=== PATIENT | female | born 1935 | race Caucasian/White ===

== ENCOUNTER 2018-11-22 19:39 | Emergency (ER) | payer MEDICAID ==
[~2018-11-22] VITALS: Ht 149.9 cm; Wt 57.0 kg
[~2018-11-22 19:39] MED LIST: FURO-151 PO; Famotidine PO; LACT10SO7 PO; PRED5TAB48 PO; SULF15DR26 BOTHEYE
[2018-11-22] MEDS ORDERED: IBUPROFEN 600MG TABLET PO ONE (21:00)
[2018-11-22 22:13] VITALS: BP 113/67
== END 2018-11-22 22:13 | disposition home or self-care (01) ==
LOC: ER 19:39
DX: M79.644 Pain in right finger(s) (principal)
CPT/HCPCS: 29125; 73130; 99283

== ENCOUNTER 2020-03-14 18:37 | Inpatient (IN) | payer MEDICAID, OTHER ==
[~2020-03-14] VITALS: Ht 162.6 cm; Wt 73.0 kg
[2020-03-14] MEDS ORDERED: ACETAMINOPHEN 650MG SUPP PR ONE (19:00)
[2020-03-14 19:29] LABS: HEMATOCRIT. 36.8 % (36.0-48.0); HEMOGLOBIN. 12.7 g/dL (12.0-16.0); MEAN CORPUSCULAR HEMOGLOBIN 36.9 pg (28.0-32.0); MEAN CORPUSCULAR VOLUME 106.9 fL (81.0-99.0); MEAN PLATELET VOLUME 6.8 fl (7.4-10.4); PLATELET 149 x1000/uL (130-400); RED BLOOD CELL COUNT 3.44 mill/uL (4.2-5.4); RED CELL DISTRIBUTION WIDTH 14.3 % (11.6-14.6)
[2020-03-14 19:32] LABS: CHLORIDE 102 mEq/L (98-107)
[2020-03-14 19:34] LABS: INR 1.4; PROTHROMBIN TIME 15.1 sec (9.6-11.0)
[2020-03-14 19:49] LABS: PLATELET ESTIMATE NORMAL
[2020-03-14] MEDS ORDERED: CEFTRIAXONE 1 G PREMIX 50 ML IV ONE (20:00)
[2020-03-14] MEDS ORDERED: AZITHROMYCIN 500 MG in DEXT 5% WATER 250 ML IV SCH ×2 (20:00→21:00)
[2020-03-14 20:02] LABS: BG BASE EXCESS -2.2 mmol/L (-2.0-2.0); BG CARBOXYHEMOGLOBIN 0.4 % (0.5-1.5); BG DEOXYHEMOGLOBIN 5.4 % (0.0-5.0); BG FRACTION INSPIRED OXYGEN 36; BG METHEMOGLOBIN 0.1 % (0.0-1.5); BG OXYGEN SATURATION 94.6 % (92.0-98.5); BG OXYHEMOGLOBIN 94.1 % (94.0-97.0); BG PCO2 41.3 mmHg (35.0-45.0); BG PH 7.364 (7.350-7.450); BG SAMPLE SITE RIGHT BRACHIAL; BG TOTAL HEMOGLOBIN 11.4 g/dL (12.0-18.0); BG VENT MODE NASAL CANNULA
[2020-03-14] MEDS ORDERED: ACETAMINOPHEN 325MG TABLET PO PRN ×2 (21:00)
[2020-03-14] MEDS ORDERED: TRAMADOL 50MG TABLET PO PRN (21:00)
[2020-03-14] MEDS ORDERED: CLONIDINE 0.1MG TABLET PO PRN (21:00)
[2020-03-14] MEDS ORDERED: MAGNESIUM/ALUMINUM HYDROXIDE/SIMETHICONE 30ML UDC PO PRN (21:00)
[2020-03-14] MEDS ORDERED: DOCUSATE SODIUM 100MG CAPSULE PO PRN (21:00)
[2020-03-14] MEDS ORDERED: ZOLPIDEM TARTRATE 5MG TABLET PO PRN (21:00)
[2020-03-14] MEDS ORDERED: SPIRONOLACTONE 25MG TABLET PO SCH (21:00)
[2020-03-14] MEDS ORDERED: IPRATROPIUM/ALBUTEROL 0.5-3(2.5)MG/3ML NEB ORI PRN (21:00)
[2020-03-14] MEDS ORDERED: NITROGLYCERIN 0.4MG TABLET SL SL PRN (21:00)
[2020-03-14] MEDS ORDERED: POTASSIUM CHLORIDE 20MEQ TABLET SR PO SCH (21:00)
[2020-03-14] MEDS ORDERED: ONDANSETRON HCL 4MG/2ML INJ IV PRN (21:00)
[2020-03-14 21:32] LABS: FOLIC ACID (FOLATE) SERUM 13.9 ng/mL (>5.38)
[2020-03-14 22:03] LABS: T4 FREE 1.03 ng/dL (0.76-1.46)
[2020-03-14] MEDS ORDERED: FAMOTIDINE 20MG TABLET PO SCH (23:15)
[2020-03-14] MEDS ORDERED: ASCORBIC ACID 500 MG TABLET PO SCH (23:15)
[2020-03-14] MEDS ORDERED: SPIRONOLACTONE 25MG TABLET PO NR (23:15)
[2020-03-14 23:45] LABS: CLARITY URINE CLEAR (CLEAR); COLOR URINE DARK YELLOW (YELLOW); KETONES URINE TRACE (NEGATIVE); LEUKOCYTE ESTERASE URINE 1+ (NEGATIVE); NITRITE URINE NEGATIVE (NEGATIVE); OCCULT BLOOD URINE NEGATIVE (NEGATIVE); PH URINE 5.5 (4.5-8.0); PROTEIN URINE NEGATIVE (NEGATIVE); SPECIFIC GRAVITY URINE 1.018 (1.005-1.030)
[2020-03-15 00:14] LABS: CREATINE KINASE 574 IU/L (26-192)
[2020-03-15] MEDS ORDERED: ENOXAPARIN 60MG/0.6ML SYR SUBCUT SCH ×2 (04:30→18:00)
[2020-03-15 05:09] LABS: HEMOGLOBIN. 12.5 g/dL (12.0-16.0); MEAN CORPUSCULAR HEMOGLOBIN 37.5 pg (28.0-32.0); MEAN CORPUSCULAR VOLUME 108.4 fL (81.0-99.0); MEAN PLATELET VOLUME 6.9 fl (7.4-10.4); PLATELET 129 x1000/uL (130-400); RED BLOOD CELL COUNT 3.32 mill/uL (4.2-5.4); RED CELL DISTRIBUTION WIDTH 14.1 % (11.6-14.6)
[2020-03-15 05:18] LABS: CHLORIDE 101 mEq/L (98-107)
[2020-03-15 05:28] LABS: PHOSPHORUS 3.8 mg/dL (2.5-4.9)
[2020-03-15 05:30] LABS: CREATINE KINASE 483 IU/L (26-192)
[2020-03-15] MEDS ORDERED: FUROSEMIDE 20MG/2ML VIAL IVP SCH (05:45)
[2020-03-15 06:27] LABS: PLATELET ESTIMATE NORMAL
[2020-03-15] MEDS: SPIRONOLACTONE 25MG TABLET PO SCH (09:27)
[2020-03-15] MEDS: GUAIFENESIN/DM 600MG/30MG ER TAB 12HR PO SCH ×3 (09:27→22:14)
[2020-03-15] MEDS: ASCORBIC ACID 500 MG TABLET PO SCH ×2 (09:28→22:14)
[2020-03-15] MEDS: ASPIRIN 81MG EC TABLET PO SCH (09:28)
[2020-03-15] MEDS: ZINC SULFATE 220 MG ( 50 ) CAPSULE PO SCH (09:28)
[2020-03-15 11:29] VITALS: BP 127/49
[2020-03-15 12:00] VITALS: BP 127/49
[2020-03-15] MEDS: FAMOTIDINE 20MG TABLET PO SCH (12:22)
[2020-03-15 16:00] VITALS: BP 148/66
[2020-03-15] MEDS: FUROSEMIDE 20MG/2ML VIAL IVP SCH (17:26)
[2020-03-15 20:00] VITALS: BP 122/58
[2020-03-15] MEDS ORDERED: FAMOTIDINE 20MG TABLET PO SCH (21:00)
[2020-03-15] MEDS ORDERED: CEFTRIAXONE 1 G PREMIX 50 ML IV SCH ×2 (21:00)
[2020-03-15] MEDS: AZITHROMYCIN 500 MG in DEXT 5% WATER 250 ML IV SCH (22:13)
[2020-03-16] VITALS: BP 119/61
[2020-03-16 04:00] VITALS: BP 114/57
[2020-03-16] MEDS: FUROSEMIDE 20MG/2ML VIAL IVP SCH ×2 (06:35→17:39)
[2020-03-16 08:00] VITALS: BP 130/64
[2020-03-16] MEDS: FAMOTIDINE 20MG TABLET PO SCH (09:18)
[2020-03-16] MEDS: ASCORBIC ACID 500 MG TABLET PO SCH ×2 (09:18→20:43)
[2020-03-16] MEDS: GUAIFENESIN/DM 600MG/30MG ER TAB 12HR PO SCH ×2 (09:19→20:45)
[2020-03-16] MEDS: SPIRONOLACTONE 25MG TABLET PO SCH (09:19)
[2020-03-16] MEDS: ENOXAPARIN 40MG/0.4ML SYR SUBCUT SCH (09:19)
[2020-03-16] MEDS: ZINC SULFATE 220 MG ( 50 ) CAPSULE PO SCH (09:19)
[2020-03-16] MEDS: ASPIRIN 81MG EC TABLET PO SCH (09:19)
[2020-03-16 12:00] VITALS: BP 129/70
[2020-03-16 16:00] VITALS: BP 134/61
[2020-03-16 20:00] VITALS: BP 129/61
[2020-03-16] MEDS: AZITHROMYCIN 500 MG in DEXT 5% WATER 250 ML IV SCH (20:43)
[2020-03-16] MEDS: CEFTRIAXONE 1,000 MG in DEXTROSE 5% WATER 50 ML IV SCH (23:43)
[2020-03-17] VITALS: BP 128/70
[2020-03-17 04:00] VITALS: BP 125/71
[2020-03-17 08:00] VITALS: BP 159/75
[2020-03-17] MEDS: ENOXAPARIN 40MG/0.4ML SYR SUBCUT SCH ×2 (09:00→09:19)
[2020-03-17] MEDS: FAMOTIDINE 20MG TABLET PO SCH (09:16)
[2020-03-17] MEDS: ASPIRIN 81MG EC TABLET PO SCH (09:16)
[2020-03-17] MEDS: SPIRONOLACTONE 25MG TABLET PO SCH (09:17)
[2020-03-17] MEDS: ZINC SULFATE 220 MG ( 50 ) CAPSULE PO SCH (09:17)
[2020-03-17] MEDS: ASCORBIC ACID 500 MG TABLET PO SCH ×2 (09:17→21:00)
[2020-03-17] MEDS: GUAIFENESIN/DM 600MG/30MG ER TAB 12HR PO SCH ×2 (09:21→21:00)
[2020-03-17 12:00] VITALS: BP 160/78
[2020-03-17 16:00] VITALS: BP 120/68
[2020-03-17] MEDS: FUROSEMIDE 20MG/2ML VIAL IVP SCH ×2 (18:40→18:41)
[2020-03-17 20:00] VITALS: BP 159/74
[2020-03-17] MEDS: AZITHROMYCIN 500 MG in DEXT 5% WATER 250 ML IV SCH (22:29)
[2020-03-17] MEDS: CEFTRIAXONE 1,000 MG in DEXTROSE 5% WATER 50 ML IV SCH (23:27)
[2020-03-18] VITALS: BP 135/77
[2020-03-18 04:00] VITALS: BP 136/54
[2020-03-18] MEDS: FUROSEMIDE 20MG/2ML VIAL IVP SCH ×2 (05:47→17:57)
[2020-03-18 08:00] VITALS: BP 150/73
[2020-03-18] MEDS: SPIRONOLACTONE 25MG TABLET PO SCH (08:25)
[2020-03-18] MEDS: ENOXAPARIN 40MG/0.4ML SYR SUBCUT SCH (08:25)
[2020-03-18] MEDS: ASCORBIC ACID 500 MG TABLET PO SCH ×2 (08:25→21:48)
[2020-03-18] MEDS: GUAIFENESIN/DM 600MG/30MG ER TAB 12HR PO SCH ×2 (08:25→21:48)
[2020-03-18] MEDS: ASPIRIN 81MG EC TABLET PO SCH (08:25)
[2020-03-18] MEDS: ZINC SULFATE 220 MG ( 50 ) CAPSULE PO SCH (08:25)
[2020-03-18] MEDS: FAMOTIDINE 20MG TABLET PO SCH (08:25)
[2020-03-18] MEDS ORDERED: LORAZEPAM 2MG/ML CPJ IV PRN (10:15)
[2020-03-18 12:00] VITALS: BP 137/96
[2020-03-18] MEDS ORDERED: HALOPERIDOL 0.5MG TABLET PO PRN (12:00)
[2020-03-18 16:00] VITALS: BP 140/71
[2020-03-18 20:00] VITALS: BP 139/73
[2020-03-18] MEDS: AZITHROMYCIN 500 MG in DEXT 5% WATER 250 ML IV SCH (20:21)
[2020-03-18] MEDS: CEFTRIAXONE 1,000 MG in DEXTROSE 5% WATER 50 ML IV SCH (21:48)
[2020-03-18] MEDS: RISPERIDONE 0.25MG TABLET PO SCH (21:48)
[2020-03-19] VITALS: BP 119/63
[2020-03-19 04:00] VITALS: BP 145/73
[2020-03-19] MEDS: FUROSEMIDE 20MG/2ML VIAL IVP SCH ×2 (05:30→17:05)
[2020-03-19] MEDS: ASPIRIN 81MG EC TABLET PO SCH ×2 (09:00→10:14)
[2020-03-19] MEDS: ZINC SULFATE 220 MG ( 50 ) CAPSULE PO SCH ×2 (09:00→10:14)
[2020-03-19] MEDS: ASCORBIC ACID 500 MG TABLET PO SCH ×3 (09:00→21:22)
[2020-03-19] MEDS: GUAIFENESIN/DM 600MG/30MG ER TAB 12HR PO SCH ×3 (09:00→21:22)
[2020-03-19] MEDS: SPIRONOLACTONE 25MG TABLET PO SCH ×2 (09:00→10:14)
[2020-03-19] MEDS: FAMOTIDINE 20MG TABLET PO SCH ×2 (09:00→10:15)
[2020-03-19] MEDS: ENOXAPARIN 40MG/0.4ML SYR SUBCUT SCH (10:15)
[2020-03-19 10:16] VITALS: BP 132/70
[2020-03-19] MEDS: VANCOMYCIN 1 G PREMIX 200 ML IV SCH ×2 (13:00→13:22)
[2020-03-19 13:07] VITALS: BP 140/63
[2020-03-19 17:59] VITALS: BP 139/68
[2020-03-19 20:00] VITALS: BP 136/65
[2020-03-19] MEDS: RISPERIDONE 0.25MG TABLET PO SCH (21:22)
[2020-03-19 22:37] LABS: COVID-19 PCR RNA NOT DETECTED
[2020-03-19 22:38] LABS: COVID-19 PCR RNA NOT DETECTED
[2020-03-19 23:44] LABS: HEMATOCRIT. 39.8 % (36.0-48.0); HEMOGLOBIN. 13.9 g/dL (12.0-16.0); MEAN CORPUSCULAR HEMOGLOBIN 37.5 pg (28.0-32.0); MEAN CORPUSCULAR VOLUME 107.5 fL (81.0-99.0); MEAN PLATELET VOLUME 7.1 fl (7.4-10.4); PLATELET 121 x1000/uL (130-400); RED CELL DISTRIBUTION WIDTH 14.4 % (11.6-14.6)
[2020-03-19 23:51] LABS: CHLORIDE 93 mEq/L (98-107)
[2020-03-20] VITALS: BP 120/58
[2020-03-20 02:26] LABS: PLATELET ESTIMATE SLIGHTLY DECREASED
[2020-03-20 04:00] VITALS: BP 137/61
[2020-03-20] MEDS: FUROSEMIDE 20MG/2ML VIAL IVP SCH ×2 (05:53→17:54)
[2020-03-20 08:00] VITALS: BP 166/69
[2020-03-20] MEDS: FAMOTIDINE 20MG TABLET PO SCH (09:00)
[2020-03-20] MEDS: GUAIFENESIN/DM 600MG/30MG ER TAB 12HR PO SCH ×2 (09:00→21:00)
[2020-03-20] MEDS: ZINC SULFATE 220 MG ( 50 ) CAPSULE PO SCH (09:00)
[2020-03-20] MEDS: ASPIRIN 81MG EC TABLET PO SCH (09:00)
[2020-03-20] MEDS: SPIRONOLACTONE 25MG TABLET PO SCH (09:00)
[2020-03-20] MEDS: ASCORBIC ACID 500 MG TABLET PO SCH ×2 (09:00→21:00)
[2020-03-20 12:00] VITALS: BP 166/69
[2020-03-20] MEDS: ENOXAPARIN 40MG/0.4ML SYR SUBCUT SCH (12:30)
[2020-03-20] MEDS: VANCOMYCIN 1 G PREMIX 200 ML IV SCH (14:52)
[2020-03-20 16:00] VITALS: BP 139/61
[2020-03-20 20:00] VITALS: BP 133/57
[2020-03-20] MEDS: RISPERIDONE 0.25MG TABLET PO SCH (21:00)
[2020-03-21] VITALS: BP 152/69
[2020-03-21 04:00] VITALS: BP 138/72
[2020-03-21] MEDS: FUROSEMIDE 20MG/2ML VIAL IVP SCH ×2 (07:13→17:34)
[2020-03-21 08:00] VITALS: BP 130/64
[2020-03-21] MEDS: ASCORBIC ACID 500 MG TABLET PO SCH ×3 (09:00→20:56)
[2020-03-21] MEDS: ZINC SULFATE 220 MG ( 50 ) CAPSULE PO SCH ×2 (09:00→09:25)
[2020-03-21] MEDS: ASPIRIN 81MG EC TABLET PO SCH ×2 (09:00→09:26)
[2020-03-21] MEDS: SPIRONOLACTONE 25MG TABLET PO SCH ×2 (09:00→09:26)
[2020-03-21] MEDS: FAMOTIDINE 20MG TABLET PO SCH ×2 (09:00→09:25)
[2020-03-21] MEDS: GUAIFENESIN/DM 600MG/30MG ER TAB 12HR PO SCH ×2 (09:25→20:56)
[2020-03-21] MEDS: ENOXAPARIN 40MG/0.4ML SYR SUBCUT SCH (09:25)
[2020-03-21 12:00] VITALS: BP 137/64
[2020-03-21 16:00] VITALS: BP 131/60
[2020-03-21] MEDS: VANCOMYCIN 1 G PREMIX 200 ML IV SCH (16:37)
[2020-03-21 20:00] VITALS: BP 115/54
[2020-03-21] MEDS: RISPERIDONE 0.25MG TABLET PO SCH (20:56)
[2020-03-22] VITALS: BP 116/63
[2020-03-22 04:00] VITALS: BP 124/63
[2020-03-22] MEDS: FUROSEMIDE 20MG/2ML VIAL IVP SCH ×2 (05:39→17:55)
[2020-03-22 07:01] LABS: CHLORIDE 98 mEq/L (98-107)
[2020-03-22 08:00] VITALS: BP 120/60
[2020-03-22] MEDS: SPIRONOLACTONE 25MG TABLET PO SCH (09:00)
[2020-03-22] MEDS: ENOXAPARIN 40MG/0.4ML SYR SUBCUT SCH (09:00)
[2020-03-22] MEDS: ASPIRIN 81MG EC TABLET PO SCH (09:28)
[2020-03-22] MEDS: ASCORBIC ACID 500 MG TABLET PO SCH ×2 (09:28→21:25)
[2020-03-22] MEDS: ZINC SULFATE 220 MG ( 50 ) CAPSULE PO SCH (09:28)
[2020-03-22] MEDS: FAMOTIDINE 20MG TABLET PO SCH (09:28)
[2020-03-22] MEDS: GUAIFENESIN/DM 600MG/30MG ER TAB 12HR PO SCH ×2 (09:31→21:25)
[2020-03-22 12:00] VITALS: BP 138/68
[2020-03-22] MEDS ORDERED: VANCOMYCIN 1,000 MG in DEXT 5% WATER 250 ML IV SCH (13:00)
[2020-03-22 16:00] VITALS: BP 142/75
[2020-03-22 20:00] VITALS: BP 128/68
[2020-03-22] MEDS: RISPERIDONE 0.25MG TABLET PO SCH (21:25)
[2020-03-22] MEDS ORDERED: DOPAMINE 800MG/500ML PREMIX 500 ML IV NR (22:30)
[2020-03-22] MEDS ORDERED: MIDAZOLAM HCL 100 MG in DEXT 5% WATER 80 ML IV PRN (22:30)
[2020-03-22] MEDS ORDERED: NOREPINEPHRINE 16 MG in DEXT 5% WATER 234 ML IV NR (22:30)
[2020-03-22 22:31] LABS: BG CARBOXYHEMOGLOBIN 1.1 % (0.5-1.5); BG DEOXYHEMOGLOBIN 43.8 % (0.0-5.0); BG FRACTION INSPIRED OXYGEN 100; BG METHEMOGLOBIN 0.3 % (0.0-1.5); BG OXYGEN SATURATION 55.6 % (92.0-98.5); BG OXYHEMOGLOBIN 54.8 % (94.0-97.0); BG PCO2 75.1 mmHg (35.0-45.0); BG PH 7.344 (7.350-7.450); BG PO2 31.1 mmHg (75.0-100.0); BG SAMPLE SITE RIGHT RADIAL; BG TIDAL VOLUME(mL) 500 mL; BG TOTAL HEMOGLOBIN 13.9 g/dL (12.0-18.0); BG VENT MODE VENT - A/C; BG VENT RATE 14 set
[2020-03-22] MEDS ORDERED: IPRATROPIUM/ALBUTEROL 0.5-3(2.5)MG/3ML NEB HHN PRN (22:45)
[2020-03-22] MEDS ORDERED: WATER IV PRN (23:30)
[2020-03-22] MEDS ORDERED: DEXT 5% IV PRN (23:30)
[2020-03-22] MEDS ORDERED: NOREPINEPHRINE 16 MG in DEXT 5% WATER 234 ML IV PRN (23:30)
[2020-03-22] MEDS ORDERED: PHENYLEPHRINE 40 MG in DEXT 5% WATER 246 ML IV PRN (23:30)
[2020-03-22] MEDS ORDERED: DOPAMINE HCL IV PRN (23:30)
[2020-03-22] MEDS ORDERED: DOPAMINE HCL 800 MG in DEXT 5% WATER 230 ML IV PRN (23:30)
[2020-03-23] VITALS (98 sets, daily range): BP systolic 61–176; BP diastolic 43–106
[2020-03-23] MEDS: VANCOMYCIN 1,000 MG in DEXT 5% WATER 250 ML IV SCH ×3 (00:27→23:19)
[2020-03-23] MEDS: PIPERACILLIN/TAZOBACTAM 3.375 G in DEXT 5% WATER 100 ML IV SCH ×2 (01:30→08:36)
[2020-03-23] MEDS ORDERED: PHENYLEPHRINE 80 MG in DEXT 5% WATER 492 ML IV PRN (05:00)
[2020-03-23] MEDS ORDERED: PIPERACILLIN/TAZOBACTAM 3.375 G/VIAL IV SCH (06:00)
[2020-03-23] MEDS: FENTANYL CITRATE/PF 1,000 MCG in SODIUM CHLORIDE 0.9% 80 ML IV PRN (06:03)
[2020-03-23] MEDS: PHENYLEPHRINE 80 MG in DEXT 5% WATER 492 ML IV PRN ×2 (06:04→13:21)
[2020-03-23 06:37] LABS: HEMOGLOBIN. 14.1 g/dL (12.0-16.0); MEAN CORPUSCULAR HEMOGLOBIN 37.1 pg (28.0-32.0); MEAN CORPUSCULAR VOLUME 108.1 fL (81.0-99.0); PLATELET 76 x1000/uL (130-400); RED BLOOD CELL COUNT 3.79 mill/uL (4.2-5.4); RED CELL DISTRIBUTION WIDTH 14.1 % (11.6-14.6)
[2020-03-23 06:40] LABS: INR 1.9; PROTHROMBIN TIME 19.9 sec (9.6-11.0)
[2020-03-23 08:14] LABS: CHLORIDE 85 mEq/L (98-107)
[2020-03-23] MEDS: ZINC SULFATE 220 MG ( 50 ) CAPSULE PO SCH (08:32)
[2020-03-23] MEDS: ASCORBIC ACID 500 MG TABLET PO SCH ×2 (08:32→20:41)
[2020-03-23] MEDS: FAMOTIDINE 20MG TABLET PO SCH (08:32)
[2020-03-23] MEDS: DEXT 5%/0.9% NACL 1,000 ML IV SCH ×2 (08:33→19:00)
[2020-03-23] MEDS: NOREPINEPHRINE 32 MG in DEXT 5% WATER 468 ML IV PRN (08:36)
[2020-03-23] MEDS: SPIRONOLACTONE 25MG TABLET PO SCH (08:59)
[2020-03-23] MEDS: ENOXAPARIN 40MG/0.4ML SYR SUBCUT SCH ×2 (09:00→14:00)
[2020-03-23] MEDS: GUAIFENESIN/DM 600MG/30MG ER TAB 12HR PO SCH ×2 (09:00→20:41)
[2020-03-23 09:21] LABS: BG BASE EXCESS 19.6 mmol/L (-2.0-2.0); BG CARBOXYHEMOGLOBIN 0.3 % (0.5-1.5); BG DEOXYHEMOGLOBIN 3.1 % (0.0-5.0); BG FRACTION INSPIRED OXYGEN 100; BG HCO3 ACT 44.6 mmol/L (22.0-26.0); BG OXYGEN SATURATION 96.9 % (92.0-98.5); BG OXYHEMOGLOBIN 96.6 % (94.0-97.0); BG PCO2 50.5 mmHg (35.0-45.0); BG PH 7.564 (7.350-7.450); BG PO2 85.2 mmHg (75.0-100.0); BG SAMPLE SITE RIGHT RADIAL; BG TIDAL VOLUME(mL) 500 mL; BG TOTAL HEMOGLOBIN 14.2 g/dL (12.0-18.0); BG VENT MODE VENT - A/C; BG VENT RATE 16 set
[2020-03-23] MEDS: FUROSEMIDE 20MG/2ML VIAL IVP SCH ×2 (10:10→17:12)
[2020-03-23] MEDS ORDERED: PROPOFOL 10MG/ML 100ML 100 ML IV PRN (10:30)
[2020-03-23 12:44] LABS: NUCLEATED RED BLOOD CELLS 1 /100 WBC; PLATELET ESTIMATE SLIGHTLY DECREASED
[2020-03-23] MEDS: CEFEPIME 1,000 MG in DEXTROSE 5% WATER 50 ML IV SCH (16:06)
[2020-03-23] MEDS: LACTULOSE 20G/30ML UDC PO SCH ×3 (16:07→23:19)
[2020-03-23] MEDS: METRONIDAZOLE 500 MG PREMIX 100 ML IV SCH ×2 (16:55→23:18)
[2020-03-23] MEDS: RISPERIDONE 0.25MG TABLET PO SCH (20:41)
[2020-03-23] MEDS: IPRATROPIUM/ALBUTEROL 0.5-3(2.5)MG/3ML NEB HHN SCH (20:52)
[2020-03-24] VITALS (93 sets, daily range): BP systolic 81–141; BP diastolic 40–87
[2020-03-24] MEDS: PHENYLEPHRINE 80 MG in DEXT 5% WATER 492 ML IV PRN ×2 (00:38→13:41)
[2020-03-24] MEDS: IPRATROPIUM/ALBUTEROL 0.5-3(2.5)MG/3ML NEB HHN SCH ×4 (02:09→20:05)
[2020-03-24] MEDS: LACTULOSE 20G/30ML UDC PO SCH ×3 (03:26→20:45)
[2020-03-24] MEDS: DEXT 5%/0.9% NACL 1,000 ML IV SCH ×3 (03:26→20:45)
[2020-03-24] MEDS: CEFEPIME 1,000 MG in DEXTROSE 5% WATER 50 ML IV SCH ×2 (03:26→15:59)
[2020-03-24] MEDS: FUROSEMIDE 20MG/2ML VIAL IVP SCH ×2 (05:24→17:08)
[2020-03-24 06:15] LABS: HEMATOCRIT. 38.6 % (36.0-48.0); HEMOGLOBIN. 13.2 g/dL (12.0-16.0); MEAN CORPUSCULAR HEMOGLOBIN 37.1 pg (28.0-32.0); MEAN CORPUSCULAR VOLUME 108.4 fL (81.0-99.0); PLATELET 73 x1000/uL (130-400); RED BLOOD CELL COUNT 3.56 mill/uL (4.2-5.4); RED CELL DISTRIBUTION WIDTH 15.2 % (11.6-14.6)
[2020-03-24 07:19] LABS: BG BASE EXCESS 11.6 mmol/L (-2.0-2.0); BG CARBOXYHEMOGLOBIN 0.4 % (0.5-1.5); BG DEOXYHEMOGLOBIN 5.1 % (0.0-5.0); BG FRACTION INSPIRED OXYGEN 100; BG HCO3 ACT 38.3 mmol/L (22.0-26.0); BG METHEMOGLOBIN 0.1 % (0.0-1.5); BG OXYGEN SATURATION 94.9 % (92.0-98.5); BG OXYHEMOGLOBIN 94.4 % (94.0-97.0); BG PCO2 59.2 mmHg (35.0-45.0); BG PH 7.429 (7.350-7.450); BG PO2 79.5 mmHg (75.0-100.0); BG SAMPLE SITE RIGHT RADIAL; BG TIDAL VOLUME(mL) 500 mL; BG TOTAL HEMOGLOBIN 13.6 g/dL (12.0-18.0); BG VENT MODE VENT - A/C; BG VENT RATE 12 set
[2020-03-24 09:03] LABS: PLATELET ESTIMATE DECREASED
[2020-03-24] MEDS: PANTOPRAZOLE SODIUM 40 MG/VIAL IV SCH (09:06)
[2020-03-24] MEDS: ASCORBIC ACID 500 MG TABLET PO SCH ×2 (09:06→20:45)
[2020-03-24] MEDS: ZINC SULFATE 220 MG ( 50 ) CAPSULE PO SCH (09:07)
[2020-03-24] MEDS: METRONIDAZOLE 500 MG PREMIX 100 ML IV SCH ×3 (09:07→23:21)
[2020-03-24] MEDS: SPIRONOLACTONE 25MG TABLET PO SCH (09:12)
[2020-03-24] MEDS: MULTIVITAMINS,THER W-MINERALS TABLET PO SCH (10:50)
[2020-03-24] MEDS: THIAMINE HCL 100MG TABLET PO SCH (10:50)
[2020-03-24] MEDS: FOLIC ACID 1MG TABLET PO SCH (10:50)
[2020-03-24] MEDS: GUAIFENESIN-DM 200MG-20MG/10ML UDC PO SCH ×2 (13:54→22:13)
[2020-03-24] MEDS: RISPERIDONE 0.25MG TABLET PO SCH (20:45)
[2020-03-24] MEDS: NOREPINEPHRINE 32 MG in DEXT 5% WATER 468 ML IV PRN (23:17)
[2020-03-25] VITALS (94 sets, daily range): BP systolic 81–125; BP diastolic 47–97
[2020-03-25] MEDS: IPRATROPIUM/ALBUTEROL 0.5-3(2.5)MG/3ML NEB HHN SCH ×4 (02:08→22:20)
[2020-03-25] MEDS: DEXT 5%/0.9% NACL 1,000 ML IV SCH ×3 (03:25→20:19)
[2020-03-25] MEDS: CEFEPIME 1,000 MG in DEXTROSE 5% WATER 50 ML IV SCH ×2 (03:51→15:46)
[2020-03-25] MEDS: LACTULOSE 20G/30ML UDC PO SCH ×3 (03:51→20:25)
[2020-03-25] MEDS: PHENYLEPHRINE 80 MG in DEXT 5% WATER 492 ML IV PRN ×2 (04:12→21:00)
[2020-03-25] MEDS: FUROSEMIDE 20MG/2ML VIAL IVP SCH (05:56)
[2020-03-25] MEDS: GUAIFENESIN-DM 200MG-20MG/10ML UDC PO SCH ×3 (05:56→21:26)
[2020-03-25] MEDS: MULTIVITAMINS,THER W-MINERALS TABLET PO SCH (08:55)
[2020-03-25] MEDS: ZINC SULFATE 220 MG ( 50 ) CAPSULE PO SCH (08:55)
[2020-03-25] MEDS: ASCORBIC ACID 500 MG TABLET PO SCH ×2 (08:55→20:25)
[2020-03-25] MEDS: METRONIDAZOLE 500 MG PREMIX 100 ML IV SCH ×3 (08:55→23:21)
[2020-03-25] MEDS: THIAMINE HCL 100MG TABLET PO SCH (08:55)
[2020-03-25] MEDS: PANTOPRAZOLE SODIUM 40 MG/VIAL IV SCH (08:55)
[2020-03-25] MEDS: SPIRONOLACTONE 25MG TABLET PO SCH (08:55)
[2020-03-25] MEDS: FOLIC ACID 1MG TABLET PO SCH (08:55)
[2020-03-25] MEDS ORDERED: POTASSIUM CHLORIDE INJ 40 MEQ in DEXT 5% WATER 250 ML IV ONE (09:00)
[2020-03-25 09:32] LABS: BG CARBOXYHEMOGLOBIN 0.2 % (0.5-1.5); BG FRACTION INSPIRED OXYGEN 85; BG HCO3 ACT 29.6 mmol/L (22.0-26.0); BG METHEMOGLOBIN 0.3 % (0.0-1.5); BG OXYHEMOGLOBIN 98.5 % (94.0-97.0); BG PCO2 43.9 mmHg (35.0-45.0); BG PH 7.447 (7.350-7.450); BG PO2 153.2 mmHg (75.0-100.0); BG SAMPLE SITE RIGHT RADIAL; BG TIDAL VOLUME(mL) 500 mL; BG TOTAL HEMOGLOBIN 12.2 g/dL (12.0-18.0); BG VENT MODE VENT - A/C; BG VENT RATE 12 set
[2020-03-25 15:48] LABS: HEMATOCRIT. 35.2 % (36.0-48.0); MEAN CORPUSCULAR HEMOGLOBIN 37.4 pg (28.0-32.0); MEAN CORPUSCULAR VOLUME 109.3 fL (81.0-99.0); MEAN PLATELET VOLUME 8.4 fl (7.4-10.4); RED BLOOD CELL COUNT 3.22 mill/uL (4.2-5.4); RED CELL DISTRIBUTION WIDTH 15.2 % (11.6-14.6)
[2020-03-25 15:57] LABS: PLATELET 49 x1000/uL (130-400)
[2020-03-25 17:12] LABS: PLATELET ESTIMATE MARKEDLY DECREASED
[2020-03-25] MEDS ORDERED: KCL 20MEQ/100ML PREMIX 100 ML IV ONE (18:30)
[2020-03-25] MEDS: RISPERIDONE 0.25MG TABLET PO SCH (20:25)
[2020-03-25] MEDS: GUAIFENESIN 200MG/10ML SUGAR FREE UDC PO PRN (21:26)
[2020-03-26] VITALS (90 sets, daily range): BP systolic 75–140; BP diastolic 40–71
[2020-03-26] MEDS: IPRATROPIUM/ALBUTEROL 0.5-3(2.5)MG/3ML NEB HHN SCH ×4 (01:40→20:24)
[2020-03-26] MEDS: CEFEPIME 1,000 MG in DEXTROSE 5% WATER 50 ML IV SCH ×2 (03:40→20:44)
[2020-03-26] MEDS: LACTULOSE 20G/30ML UDC PO SCH ×2 (03:40→12:23)
[2020-03-26] MEDS: GUAIFENESIN-DM 200MG-20MG/10ML UDC PO SCH ×3 (05:27→22:42)
[2020-03-26 06:33] LABS: CHLORIDE 101 mEq/L (98-107)
[2020-03-26 06:42] LABS: PHOSPHORUS 1.1 mg/dL (2.5-4.9)
[2020-03-26 06:56] LABS: HEMOGLOBIN. 9.8 g/dL (12.0-16.0); MEAN CORPUSCULAR HEMOGLOBIN 37.5 pg (28.0-32.0); MEAN CORPUSCULAR VOLUME 107.1 fL (81.0-99.0); RED BLOOD CELL COUNT 2.61 mill/uL (4.2-5.4); RED CELL DISTRIBUTION WIDTH 15.3 % (11.6-14.6)
[2020-03-26] MEDS ORDERED: ALBUMIN HUMAN 25GM/100ML (25%) IV SCH (07:00)
[2020-03-26] MEDS ORDERED: POTASSIUM PHOS,M-BASIC-D-BASIC 30 MMOL in SODIUM CHLORIDE 0.9% 500 ML IV SCH (09:00)
[2020-03-26] MEDS ORDERED: ENOXAPARIN 30MG/0.3ML SYR SUBCUT SCH (09:00)
[2020-03-26] MEDS: FOLIC ACID 1MG TABLET PO SCH (09:05)
[2020-03-26] MEDS: THIAMINE HCL 100MG TABLET PO SCH (09:05)
[2020-03-26] MEDS: ZINC SULFATE 220 MG ( 50 ) CAPSULE PO SCH (09:05)
[2020-03-26] MEDS: ASCORBIC ACID 500 MG TABLET PO SCH ×2 (09:05→20:44)
[2020-03-26] MEDS: MULTIVITAMINS,THER W-MINERALS TABLET PO SCH (09:05)
[2020-03-26] MEDS: PANTOPRAZOLE SODIUM 40 MG/VIAL IV SCH (09:05)
[2020-03-26] MEDS: METRONIDAZOLE 500 MG PREMIX 100 ML IV SCH ×2 (09:05→15:16)
[2020-03-26 09:07] LABS: PLATELET 47 x1000/uL (130-400)
[2020-03-26 11:10] LABS: BG CARBOXYHEMOGLOBIN 0.3 % (0.5-1.5); BG DEOXYHEMOGLOBIN 8.1 % (0.0-5.0); BG FRACTION INSPIRED OXYGEN 70; BG HCO3 ACT 29.2 mmol/L (22.0-26.0); BG METHEMOGLOBIN 0.1 % (0.0-1.5); BG OXYGEN SATURATION 91.9 % (92.0-98.5); BG OXYHEMOGLOBIN 91.5 % (94.0-97.0); BG PCO2 41.7 mmHg (35.0-45.0); BG PH 7.463 (7.350-7.450); BG PO2 62.3 mmHg (75.0-100.0); BG SAMPLE SITE RIGHT RADIAL; BG TIDAL VOLUME(mL) 500 mL; BG TOTAL HEMOGLOBIN 11.3 g/dL (12.0-18.0); BG VENT MODE VENT - A/C; BG VENT RATE 12 set
[2020-03-26] MEDS: DEXT 5%/0.9% NACL 1,000 ML IV SCH ×2 (13:46→22:42)
[2020-03-26 13:52] LABS: PLATELET ESTIMATE MARKEDLY DECREASED
[2020-03-26] MEDS ORDERED: NOREPINEPHRINE 16 MG in DEXT 5% WATER 234 ML IV PRN (15:00)
[2020-03-26] MEDS: PHENYLEPHRINE 80 MG in DEXT 5% WATER 492 ML IV PRN (17:12)
[2020-03-26] MEDS: RISPERIDONE 0.25MG TABLET PO SCH (20:44)
[2020-03-26] MEDS: LORAZEPAM 2MG/ML CPJ IV PRN (22:43)
[2020-03-27] VITALS (96 sets, daily range): BP systolic 75–123; BP diastolic 35–73
[2020-03-27] MEDS: IPRATROPIUM/ALBUTEROL 0.5-3(2.5)MG/3ML NEB HHN SCH ×4 (01:49→20:50)
[2020-03-27 05:47] LABS: HEMATOCRIT. 32.5 % (36.0-48.0); HEMOGLOBIN. 11.3 g/dL (12.0-16.0); MEAN CORPUSCULAR HEMOGLOBIN 37.7 pg (28.0-32.0); MEAN CORPUSCULAR VOLUME 108.8 fL (81.0-99.0); MEAN PLATELET VOLUME 8.6 fl (7.4-10.4); PLATELET 51 x1000/uL (130-400); RED BLOOD CELL COUNT 2.98 mill/uL (4.2-5.4)
[2020-03-27] MEDS: GUAIFENESIN-DM 200MG-20MG/10ML UDC PO SCH ×3 (05:49→22:06)
[2020-03-27 06:12] LABS: PHOSPHORUS 3.1 mg/dL (2.5-4.9)
[2020-03-27 06:39] LABS: HEPATITIS B SURFACE ANTIGEN NEGATIVE
[2020-03-27 07:09] LABS: HEPATITIS A AB IGM NEGATIVE (NEGATIVE)
[2020-03-27] MEDS ORDERED: ALBUMIN HUMAN 25GM/100ML (25%) IV SCH (08:00)
[2020-03-27] MEDS: METRONIDAZOLE 500 MG PREMIX 100 ML IV SCH ×3 (08:10→20:40)
[2020-03-27] MEDS: FOLIC ACID 1MG TABLET PO SCH (08:10)
[2020-03-27] MEDS: ASCORBIC ACID 500 MG TABLET PO SCH ×2 (08:10→20:40)
[2020-03-27] MEDS: MULTIVITAMINS,THER W-MINERALS TABLET PO SCH (08:10)
[2020-03-27] MEDS: THIAMINE HCL 100MG TABLET PO SCH (08:10)
[2020-03-27] MEDS: ZINC SULFATE 220 MG ( 50 ) CAPSULE PO SCH (08:11)
[2020-03-27] MEDS: LACTULOSE 20G/30ML UDC PO SCH (08:11)
[2020-03-27] MEDS: PANTOPRAZOLE SODIUM 40 MG/VIAL IV SCH (08:11)
[2020-03-27 08:58] LABS: PLATELET ESTIMATE DECREASED
[2020-03-27] MEDS: PHENYLEPHRINE 80 MG in DEXT 5% WATER 492 ML IV PRN (09:03)
[2020-03-27 09:12] LABS: BG BASE EXCESS -1.8 mmol/L (-2.0-2.0); BG CARBOXYHEMOGLOBIN 0.3 % (0.5-1.5); BG DEOXYHEMOGLOBIN 3.6 % (0.0-5.0); BG FRACTION INSPIRED OXYGEN 100; BG HCO3 ACT 22.4 mmol/L (22.0-26.0); BG METHEMOGLOBIN 0.3 % (0.0-1.5); BG OXYGEN SATURATION 96.4 % (92.0-98.5); BG OXYHEMOGLOBIN 95.8 % (94.0-97.0); BG PH 7.411 (7.350-7.450); BG PO2 87.5 mmHg (75.0-100.0); BG SAMPLE SITE RIGHT RADIAL; BG TIDAL VOLUME(mL) 500 mL; BG TOTAL HEMOGLOBIN 11.8 g/dL (12.0-18.0); BG VENT MODE VENT - A/C; BG VENT RATE 12 set
[2020-03-27] MEDS ORDERED: VANCOMYCIN 750 MG PREMIX 150 ML IV SCH (10:00)
[2020-03-27] MEDS ORDERED: FENTANYL CITRATE/PF 500 MCG in SODIUM CHLORIDE 0.9% 40 ML IV PRN (10:30)
[2020-03-27] MEDS: FENTANYL CITRATE/PF 1,000 MCG in SODIUM CHLORIDE 0.9% 80 ML IV PRN (12:31)
[2020-03-27] MEDS: GUAIFENESIN 200MG/10ML SUGAR FREE UDC PO PRN ×2 (13:53→14:25)
[2020-03-27] MEDS: ACETYLCYSTEINE 100MG/ML 10% VIAL 4ML INH SCH (16:23)
[2020-03-27] MEDS: CEFEPIME 1,000 MG in DEXTROSE 5% WATER 50 ML IV SCH (20:40)
[2020-03-27] MEDS: RISPERIDONE 0.25MG TABLET PO SCH (20:40)
[2020-03-28] VITALS (134 sets, daily range): BP systolic 59–134; BP diastolic 30–87
[2020-03-28] MEDS: ACETYLCYSTEINE 100MG/ML 10% VIAL 4ML INH SCH ×3 (00:36→16:23)
[2020-03-28] MEDS: IPRATROPIUM/ALBUTEROL 0.5-3(2.5)MG/3ML NEB HHN SCH ×6 (00:36→21:18)
[2020-03-28] MEDS: PHENYLEPHRINE 80 MG in DEXT 5% WATER 492 ML IV PRN ×2 (01:11→11:20)
[2020-03-28] MEDS: GUAIFENESIN-DM 200MG-20MG/10ML UDC PO SCH ×3 (05:43→23:24)
[2020-03-28 05:48] LABS: HEMATOCRIT. 33.2 % (36.0-48.0); HEMOGLOBIN. 11.3 g/dL (12.0-16.0); MEAN CORPUSCULAR HEMOGLOBIN 37.6 pg (28.0-32.0); MEAN CORPUSCULAR VOLUME 110.1 fL (81.0-99.0); MEAN PLATELET VOLUME 8.7 fl (7.4-10.4); PLATELET 59 x1000/uL (130-400); RED BLOOD CELL COUNT 3.01 mill/uL (4.2-5.4); RED CELL DISTRIBUTION WIDTH 15.5 % (11.6-14.6)
[2020-03-28 06:05] LABS: CHLORIDE 101 mEq/L (98-107)
[2020-03-28 06:11] LABS: PHOSPHORUS 3.5 mg/dL (2.5-4.9)
[2020-03-28] MEDS: LACTULOSE 20G/30ML UDC PO SCH (09:00)
[2020-03-28 09:11] LABS: BG BASE EXCESS -4.1 mmol/L (-2.0-2.0); BG CARBOXYHEMOGLOBIN 0.5 % (0.5-1.5); BG DEOXYHEMOGLOBIN 10.6 % (0.0-5.0); BG FRACTION INSPIRED OXYGEN 100; BG HCO3 ACT 22.2 mmol/L (22.0-26.0); BG OXYGEN SATURATION 89.3 % (92.0-98.5); BG OXYHEMOGLOBIN 88.9 % (94.0-97.0); BG PCO2 44.9 mmHg (35.0-45.0); BG PH 7.311 (7.350-7.450); BG PO2 61.2 mmHg (75.0-100.0); BG SAMPLE SITE RIGHT RADIAL; BG TIDAL VOLUME(mL) 500 mL; BG TOTAL HEMOGLOBIN 12.6 g/dL (12.0-18.0); BG VENT MODE VENT - A/C; BG VENT RATE 12 set
[2020-03-28] MEDS ORDERED: DEXTROSE 50% WATER 50ML SYRINGE IV PRN (09:15)
[2020-03-28] MEDS: FOLIC ACID 1MG TABLET PO SCH (09:32)
[2020-03-28] MEDS: ZINC SULFATE 220 MG ( 50 ) CAPSULE PO SCH (09:32)
[2020-03-28] MEDS: ASCORBIC ACID 500 MG TABLET PO SCH ×2 (09:32→23:23)
[2020-03-28] MEDS: THIAMINE HCL 100MG TABLET PO SCH (09:32)
[2020-03-28] MEDS: PANTOPRAZOLE SODIUM 40 MG/VIAL IV SCH (09:32)
[2020-03-28] MEDS: MULTIVITAMINS,THER W-MINERALS TABLET PO SCH (09:32)
[2020-03-28] MEDS: METRONIDAZOLE 500 MG PREMIX 100 ML IV SCH (09:32)
[2020-03-28 09:50] LABS: PLATELET ESTIMATE DECREASED
[2020-03-28] MEDS ORDERED: EPINEPHRINE 1 MG in SODIUM CHLORIDE 0.9% 249 ML IV PRN (11:15)
[2020-03-28] MEDS ORDERED: ALBUMIN HUMAN 25GM/100ML (25%) IV NR (11:18)
[2020-03-28] MEDS: FENTANYL CITRATE/PF 1,000 MCG in SODIUM CHLORIDE 0.9% 80 ML IV PRN ×2 (12:14→14:45)
[2020-03-28] MEDS: MIDODRINE HCL 5MG TABLET PO SCH ×2 (13:16→17:00)
[2020-03-28 13:45] LABS: INR 3.5; PROTHROMBIN TIME 36.6 sec (9.6-11.0)
[2020-03-28] MEDS ORDERED: LIDOCAINE HCL 1% 20ML VIAL (Pyxis) INJ ONE (14:08)
[2020-03-28] MEDS ORDERED: SODIUM BICARBONATE 4% (2.4MEQ) 5ML VIAL IV ONE (14:08)
[2020-03-28] MEDS: LORAZEPAM 2MG/ML CPJ IV PRN (14:16)
[2020-03-28] MEDS: NOREPINEPHRINE 16 MG in DEXT 5% WATER 234 ML IV PRN (14:46)
[2020-03-28] MEDS: MEROPENEM 500 MG in SODIUM CHLORIDE 0.9% 50 ML IV SCH (18:23)
[2020-03-28] MEDS: DOPAMINE 800MG PREMIX (DOUBLE) 250 ML IV PRN (21:13)
[2020-03-28] MEDS: RISPERIDONE 0.25MG TABLET PO SCH (23:23)
[2020-03-29] VITALS (43 sets, daily range): BP systolic 55–85; BP diastolic 26–62
[2020-03-29] MEDS: VASOPRESSIN 10 UNIT in SODIUM CHLORIDE 0.9% 99.5 ML IV PRN ×2 (00:49→07:07)
[2020-03-29] MEDS: NOREPINEPHRINE 16 MG in DEXT 5% WATER 234 ML IV PRN (02:11)
[2020-03-29] MEDS: DOPAMINE 800MG PREMIX (DOUBLE) 250 ML IV PRN ×3 (02:11→07:08)
[2020-03-29] MEDS: PHENYLEPHRINE 80 MG in DEXT 5% WATER 492 ML IV PRN (02:12)
[2020-03-29] MEDS: IPRATROPIUM/ALBUTEROL 0.5-3(2.5)MG/3ML NEB HHN SCH ×2 (03:02→07:46)
[2020-03-29] MEDS: ACETYLCYSTEINE 100MG/ML 10% VIAL 4ML INH SCH ×2 (03:02→07:46)
[2020-03-29] MEDS: GUAIFENESIN-DM 200MG-20MG/10ML UDC PO SCH (05:19)
[2020-03-29] MEDS: MEROPENEM 500 MG in SODIUM CHLORIDE 0.9% 50 ML IV SCH (05:19)
[2020-03-29 06:49] LABS: HEMATOCRIT. 40.6 % (36.0-48.0); HEMOGLOBIN. 13.3 g/dL (12.0-16.0); MEAN CORPUSCULAR HEMOGLOBIN 37.9 pg (28.0-32.0); MEAN CORPUSCULAR VOLUME 115.8 fL (81.0-99.0); MEAN PLATELET VOLUME 11.2 fl (7.4-10.4); PLATELET 51 x1000/uL (130-400); RED CELL DISTRIBUTION WIDTH 16.8 % (11.6-14.6)
[2020-03-29 07:14] LABS: PHOSPHORUS 4.8 mg/dL (2.5-4.9)
[2020-03-29 07:48] LABS: BG BASE EXCESS -16.3 mmol/L (-2.0-2.0); BG CARBOXYHEMOGLOBIN 0.6 % (0.5-1.5); BG DEOXYHEMOGLOBIN 18.5 % (0.0-5.0); BG FRACTION INSPIRED OXYGEN 100; BG METHEMOGLOBIN 0.2 % (0.0-1.5); BG OXYGEN SATURATION 81.4 % (92.0-98.5); BG OXYHEMOGLOBIN 80.7 % (94.0-97.0); BG PCO2 51.2 mmHg (35.0-45.0); BG PH 7.054 (7.350-7.450); BG PO2 55.8 mmHg (75.0-100.0); BG SAMPLE SITE RIGHT BRACHIAL; BG TIDAL VOLUME(mL) 500 mL; BG TOTAL HEMOGLOBIN 13.4 g/dL (12.0-18.0); BG VENT MODE VENT - A/C; BG VENT RATE 12 set
[2020-03-29] MEDS: LACTULOSE 20G/30ML UDC PO SCH (09:08)
[2020-03-29] MEDS: PANTOPRAZOLE SODIUM 40 MG/VIAL IV SCH (09:09)
[2020-03-29] MEDS: MIDODRINE HCL 5MG TABLET PO SCH (09:09)
[2020-03-29] MEDS: ASCORBIC ACID 500 MG TABLET PO SCH (09:09)
[2020-03-29] MEDS: MULTIVITAMINS,THER W-MINERALS TABLET PO SCH (09:09)
[2020-03-29] MEDS: ZINC SULFATE 220 MG ( 50 ) CAPSULE PO SCH (09:09)
[2020-03-29] MEDS ORDERED: MORPHINE SULFATE 100 MG in DEXT 5% WATER 90 ML IV PRN (10:00)
[2020-03-29] MEDS ORDERED: MORPHINE SULFATE 250 MG in DEXT 5% WATER 250 ML IV PRN (10:00)
[2020-03-29 13:27] LABS: PLATELET ESTIMATE MARKEDLY DECREASED
== END 2020-03-29 10:35 | disposition expired | DRG 720 ==
LOC: ER 18:37 → 7EST 20:40 → EDBEDREQTM 20:46 → EDBEDREQ 20:46 → ENRESERV 03-15 09:04 → 6WST 03-20 14:58 → CVICU 03-22 21:57
PROVIDERS: ADMIT Internal Medicine; ATTEND Internal Medicine
PROC: 02H633Z Insertion of Infusion Device into Right Atrium, Percutaneous Approach (ICD-10-PCS; 2020-03-20)
PROC: 5A1955Z Respiratory Ventilation, Greater than 96 Consecutive Hours (ICD-10-PCS; principal; 2020-03-22)
PROC: 0BH17EZ Insertion of Endotracheal Airway into Trachea, Via Natural or Artificial Opening (ICD-10-PCS; 2020-03-22)
PROC: 5A12012 Performance of Cardiac Output, Single, Manual (ICD-10-PCS; 2020-03-22)
PROC: 02HV33Z Insertion of Infusion Device into Superior Vena Cava, Percutaneous Approach (ICD-10-PCS; 2020-03-29)
PROC: B548ZZA Ultrasonography of Superior Vena Cava, Guidance (ICD-10-PCS; 2020-03-29)
DX: A41.9 Sepsis, unspecified organism (principal); J69.0 Pneumonitis due to inhalation of food and vomit; E43 Unspecified severe protein-calorie malnutrition; J96.01 Acute respiratory failure with hypoxia; N17.0 Acute kidney failure with tubular necrosis; R65.21 Severe sepsis with septic shock; G92 Toxic encephalopathy; I50.43 Acute on chronic combined systolic (congestive) and diastolic (congestive) heart failure; E87.6 Hypokalemia; D72.810 Lymphocytopenia; B34.9 Viral infection, unspecified; K72.90 Hepatic failure, unspecified without coma; D69.6 Thrombocytopenia, unspecified; K74.60 Unspecified cirrhosis of liver; D68.9 Coagulation defect, unspecified; F29 Unspecified psychosis not due to a substance or known physiological condition; I11.0 Hypertensive heart disease with heart failure; Z20.828 Contact with and (suspected) exposure to other viral communicable diseases; Z51.5 Encounter for palliative care; Z66 Do not resuscitate; Z82.49 Family history of ischemic heart disease and other diseases of the circulatory system; Z79.84 Long term (current) use of oral hypoglycemic drugs; Z79.899 Other long term (current) drug therapy; Z68.27 Body mass index [BMI] 27.0-27.9, adult; Z86.74 Personal history of sudden cardiac arrest; Z86.73 Personal history of transient ischemic attack (TIA), and cerebral infarction without residual deficits
CPT/HCPCS: 36415; 36600; 70551; 71045; 76700; 76937; 80048; 80053; 80061; 80202; 81003; 82140; 82375; 82550; 82553; 82607; 82746; 82805; 82962; 83036; 83540; 83550; 83605; 83735; 83880; 84100; 84132; 84145; 84439; 84443; 84478; 84484; 85025; 86705; 86709; 86803; 87070; 87077; 87340; 92950; 93005; 93306; 93970; 94002; 94667; 97162; 97164; 97166; 99285; C1725; C1752; C9113; J0456; J0692; J0696; J1265; J1642; J1650; J1940; J2060; J2185; J2274; J2370; J2543; J3010; J3370; J3480; J3490; J7040; J7042; J7050; J7060; J7608; P9047; U0001